=== PATIENT | female | born 1995 | race Caucasian/White ===

== ENCOUNTER 2019-10-07 10:08 | Inpatient (IN) | payer OTHER ==
[2019-10-07] VITALS (35 sets, daily range): BP systolic 105–148; BP diastolic 57–90
[~2019-10-07] VITALS: Ht 172.7 cm; Wt 100.1 kg
[2019-10-07] MEDS ORDERED: LACTATED RINGER'S 1000 ML IV STA (11:03)
[2019-10-07] MEDS ORDERED: PRENTAB9 PO (11:14)
[2019-10-07] MEDS ORDERED: miSOPROStol 50MCG 1/2 TABLET PO ONE (11:15)
[2019-10-07 11:16] LABS: BASO % 0.3 % (0.0-1.0); EOS # 0.1 10^3/uL (0.0-0.5); EOS % 1.8 % (0.0-3.0); HEMATOCRIT 34.7 % (36.0-47.0); LYMPH # 1.4 10^3/uL (1.5-5.0); LYMPH % 18.7 % (24.0-44.0); MEAN CORPUSCULAR HEMOGLOBIN 30.7 pg (27.0-33.0); MEAN CORPUSCULAR HGB CONC 34.6 g/dl (32.0-36.5); MEAN CORPUSCULAR VOLUME 88.7 fl (80.0-96.0); MONO # 0.5 10^3/uL (0.0-0.8); MONO % 7.1 % (0.0-5.0); NEUTROPHILS # 5.2 10^3/uL (1.5-8.5); NEUTROPHILS % 71.8 % (36.0-66.0); PLATELET COUNT, AUTOMATED 213 10^3/uL (150-450); RED BLOOD COUNT 3.91 10^6/uL (4.00-5.40); WHITE BLOOD COUNT 7.3 10^3/uL (4.0-10.0)
[2019-10-07] MEDS ORDERED: OXYTOCIN DRIP 30 UNITS in IV 1 EA IV SCH (12:15)
[2019-10-07] MEDS: LR 1,000 ML IV SCH ×2 (15:27→20:15)
[2019-10-07] MEDS ORDERED: FENTANYL 2MCG/ML ROPIVACAINE 0.2% IN 0.9% NACL 100ML IVBAG As Ordered ONE ×2 (16:12→21:30)
--- NOTE | 2019-10-07 16:36 | IPNPDOC ---
Text Note Date of Service The patient was seen on 10/07/19. NOTE Patient is very uncomfortable w/ ctx. No LOF or VB. VS WNL NAD but uncomfortable ABD NT, gravid SVE 50/-2 LE mild edema FHT, category 1, 130s, reactive, no decels, ctx q1-2min A/P IOL for PD 41wks. Fetus reassuring on pitocin. Continue IOL. Stadol and phenergan PRN. D/w patient. VS,Fishbone, I+O VS, Fishbone, I+O Laboratory Tests 10/07/19 11:00 Vital Signs Date Time Temp Pulse Resp B/P (MAP) Pulse Ox O2 Delivery O2 Flow Rate FiO2 10/07/19 14:38 105 18 128/83 (98) 10/07/19 12:59 97.8 Giovana Serra MD October 07, 2019 16:36
[2019-10-07] MEDS ORDERED: SIMETHICONE 80MG CHEW TAB PO PRN (16:45)
[2019-10-07] MEDS ORDERED: PROMETHAZINE INJ 25 MG/ML VIAL (J2550) IV PRN (16:45)
[2019-10-07] MEDS ORDERED: MOM 30ML SUSPENSION UDC PO PRN (16:45)
[2019-10-07] MEDS ORDERED: ACETAMINOPHEN 500 MG TAB PO PRN (16:45)
[2019-10-07] MEDS ORDERED: diphenhydrAMINE 25MG CAP PO PRN (16:45)
[2019-10-07] MEDS ORDERED: CALCIUM CARBONATE 500 MG CHEW U/D PO PRN (16:45)
[2019-10-07] MEDS: BUTORPHANOL 2 MG/ML INJ (J0595) IV PRN ×2 (16:49→19:30)
[2019-10-07] MEDS ORDERED: NALOXONE INJ 0.4MG/1ML VIAL (J2310 PER 1MG) IV PRN (22:30)
[2019-10-07] MEDS ORDERED: ONDANSETRON 4MG/2ML VIAL IV PRN (22:30)
[2019-10-07] MEDS ORDERED: LACTATED RINGER'S 1000 ML IV PRN (22:30)
[2019-10-07] MEDS ORDERED: ePHEDrine SULFATE 25 MG/5 ML(5MG/ML) SYRINGE IV PRN (22:30)
[2019-10-07] MEDS ORDERED: REFRIGERATOR IV KEYS XX PRN (22:30)
[2019-10-07] MEDS ORDERED: diphenhydrAMINE 50MG/ML VIAL (J1200) IV PRN (22:30)
[2019-10-07] MEDS ORDERED: EPIDURAL COMMENT XX SCH (22:30)
[2019-10-07] MEDS ORDERED: EPIDURAL/PCA KEYS XX PRN (22:30)
[2019-10-08] VITALS (87 sets, daily range): BP systolic 107–184; BP diastolic 56–102
[2019-10-08] MEDS: FENTANYL/ROPIVACAINE/NACL BAG 100 ML EPIDURAL SCH ×2 (04:11→10:20)
[2019-10-08] MEDS: LR 1,000 ML IV SCH ×2 (04:15→07:03)
[2019-10-08] MEDS ORDERED: cefTRIAXone SOD 1GM VIAL (J0696 PER 250MG) IM ONE (16:15)
[2019-10-08] MEDS ORDERED: cefTRIAXone SOD 1 GM in D5W MINI-BAG PLUS 50 ML IV ONE (16:45)
[2019-10-08] MEDS ORDERED: OXYTOCIN DRIP 30 UNITS in IV 1 EA IV SCH (17:14)
[2019-10-08] MEDS ORDERED: ANUSOL HC CREAM 30GM TOP PRN (17:15)
[2019-10-08] MEDS ORDERED: LIDOCAINE 1% MDV 20ML VIAL INFIL ONE (17:15)
[2019-10-08] MEDS ORDERED: METHYLERGONOVINE MALEATE 0.2 MG TAB PO PRN (17:15)
[2019-10-08] MEDS ORDERED: MEASLES,MUMPS,RUBELLA VACCINE INJ (MMR-II) (90707) SC SCH (17:15)
[2019-10-08] MEDS ORDERED: DIBUCAINE 1% OINTMENT 30GM TOP PRN (17:15)
[2019-10-08] MEDS ORDERED: RHOGAM 300 MCG (1500 IU) INJ (J2790) IM SCH (17:15)
--- NOTE | 2019-10-08 17:20 | DNPDOC ---
[facility] Delivery Note Delivery Note DATE OF DELIVERY: 10/08/2019 PREDELIVERY DIAGNOSIS: 41-1/7 weeks' gestation and labor. POST DELIVERY DIAGNOSIS: Delivered. PROCEDURE: Spontaneous vaginal delivery. MANAGER SHIFT: Dr. Serra ANESTHESIA: Epidural. ESTIMATED BLOOD LOSS: 250 mL. FINDINGS: 9 pound 8 ounce 4320gm boy infant, Score 8/9, nuchal cord times 1. DELIVERY SUMMARY: Patient is a 24-year-old 1 now para 1 who was admitted to labor and delivery for IOL for postdates for labor of 24hours. Patient SROM clear around 2323. Baby boy head was delivered with Ritkins maneuver due to FHT in 40s without difficulty over intact perineum in CHIP position with compound right hand at 1608. The nose and mouth were bulb suctioned. x1 nuchal cord was noted. The shoulders were then delivered without difficulty. was handed to nursing. Cord was then clamped x2 and cut after pulsation. Pitocin bolus was started. Perineum and vagina was inspected and found to have a 2nd degree laceration. This was repaired with 15mL of 1% lidocaine and 2-0 chromic. The placenta was then delivered at 1642 spontaneously intact. Cord had a 3 vessel cord. EBL was 250mL. The vagina and perineum were reinspected and no further lacerations were found and hemostasis was good. Fundus was firm. Patient tolerated delivery well. Giovana Serra MD October 08, 2019 15:59
[2019-10-08] MEDS ORDERED: ACET-683 PO (17:24)
[2019-10-08] MEDS ORDERED: PROC1CRE5 TOP (17:24)
[2019-10-08] MEDS ORDERED: DOCU100C16 PO (17:24)
[2019-10-08] MEDS ORDERED: IBUP80TA PO (17:24)
[2019-10-08] MEDS ORDERED: DIBU10OI TOP (17:24)
[2019-10-08] MEDS: IBUPROFEN 800 MG TAB PO PRN (18:36)
[2019-10-08] MEDS: DOCUSATE SODIUM 100MG CAPSULE PO SCH (21:29)
[2019-10-09] MEDS: IBUPROFEN 800 MG TAB PO PRN (05:48)
[2019-10-09 06:19] VITALS: BP 113/56
--- NOTE | 2019-10-09 06:42 | IPNPDOC ---
Progress Note Date of Service: October 09, 2019 Day#: 1 Progress Note SUBJECT: Patient is a 24-year-old 1 now Para 1 status post uncomplicated spontaneous vaginal delivery with post 2nd degree laceration and repair, doing well day # 1. She has been ambulating, voiding spontaneously without issue and tolerating regular diet. Breast feeding without issue. Reports lochia is like a normal period. Patient is ambulating well. Reports some cramping with . Tolerable pain. OBJECTIVE: VITAL SIGNS: Within normal limits, afebrile. GENERAL: No acute distress HEENT: MMM BREAST: Nontender, no erythema CARDIOVASCULAR EXAMINATION: RRR RESPIRATORY EXAMINATION: Bilaterally clear ABDOMINAL EXAMINATION: Soft, appropriate tenderness, nondistended, fundus -2 PERINEUM: Intact, minimal lochia EXTREMITIES: no edema, nontender ASSESSMENT: Patient is a 24-year-old 1 now Para 1 status post uncomplicated spontaneous vaginal delivery with post 2nd degree laceration and repair, doing well day # 1. Vitals within normal limits, afebrile, hemodynamically stable with no evidence of infection. PLAN: 1. Continue care. 2. Tylenol and Motrin for pain. 3. Encourage breast feeding and ambulation. VS, I&O, 24H, Fishbone Vital Signs/I&O Vital Signs Date Time Temp Pulse Resp B/P (MAP) Pulse Ox O2 Delivery O2 Flow Rate FiO2 10/08/19 14:19 102 18 129/69 (89) 10/08/19 13:25 99.7 10/07/19 16:59 Room Air l I&O- Last 24 Hours up to 6 AM 10/08/19 06:00 Intake Total 3000 ml Output Total 1300 ml Balance 1700 ml Giovana Serra MD October 08, 2019 16:03
[2019-10-09] MEDS: DOCUSATE SODIUM 100MG CAPSULE PO SCH ×2 (09:00→20:44)
[2019-10-09] MEDS: PRENATAL VITAMINS CHEWABLE TABLET PO SCH (12:09)
[2019-10-09] MEDS: ACETAMINOPHEN 500 MG TAB PO PRN (12:10)
[2019-10-09 18:00] VITALS: BP 121/63
[2019-10-10 05:47] VITALS: BP 126/71
[2019-10-10] MEDS: ACETAMINOPHEN 500 MG TAB PO PRN (05:56)
--- NOTE | 2019-10-10 07:44 | IPNPDOC ---
Progress Note Date of Service: October 10, 2019 Day#: 2 Progress Note SUBJECT: Patient is a 24 yo s/p ppd #2. Patient without concerns tod ay. She has been ambulating, voiding spontaneously without issue and tolerating regular diet. Breast feeding without issue. Reports lochia is light. Undecided on contraceptive at this point. OBJECTIVE: VITAL SIGNS: Within normal limits, afebrile. Alert and oriented times three. Abdomen: Fundus firm at U-2. Soft, NTTP. LE: No edema/erythema/tenderness A/P patient is ppd #2, doing well. discussed contraceptive options, will revisit at appointment. encourage BF. discharge instructions. d/c home today Le, Marlon VS, I&O, 24H, Fishbone Vital Signs/I&O Vital Signs Date Time Temp Pulse Resp B/P (MAP) Pulse Ox O2 Delivery O2 Flow Rate FiO2 10/10/19 06:32 98.6 10/10/19 05:47 93 20 126/71 (89) 97 Room Air AVRIL JOSHUA DO October 10, 2019 07:44
--- NOTE | 2019-10-10 07:51 | DS.PDOC ---
Discharge Summary General Date of Admission October 07, 2019 at 10:08 Date of Discharge 10/10/2019 Discharge Summary PROCEDURES PERFORMED DURING STAY: None. ADMITTING DIAGNOSES: 1. Postdates term DISCHARGE DIAGNOSES: 1. () HOSPITAL COURSE: Patient had IOL with uncomplicated . Bleeding like menses. Tolerating diet. Passing flatus. Able to ambulate. Pain tolerable with pain medications. Urinating without difficulty. course uncomplicated and patient discharged home on day #2. DISCHARGE MEDICATIONS: Please see below. ALLERGIES: Please see below. LABORATORY DATA: Please see below. IMAGING: none PROGNOSIS: Good ACTIVITY: Pelvic rest. DIET: Regular DISPOSITION: discharge to home DISCHARGE INSTRUCTIONS: 1. See attached. ITEMS TO FOLLOWUP ON ON OUTPATIENT: 1. 6-8wks in clinic. DISCHARGE CONDITION: Stable. TIME SPENT ON DISCHARGE: Greater than 10 minutes. Vital Signs/I&Os Vital Signs Date Time Temp Pulse Resp B/P (MAP) Pulse Ox O2 Delivery O2 Flow Rate FiO2 10/08/19 14:19 102 18 129/69 (89) 10/08/19 13:25 99.7 10/07/19 16:59 Room Air I&O- Last 24 Hours up to 6 AM 10/08/19 06:00 Intake Total 3000 ml Output Total 1300 ml Balance 1700 ml Discharge Medications Scheduled Docusate Sodium (Docusate Sodium) 100 Mg Capsule, 100 MG PO BID No.137/Iron/Folic Acd ( Vitamin Tablet) 1 Each Tablet, 1 TAB PO DAILY, (Reported) Scheduled PRN Acetaminophen (Acetaminophen) 500 Mg Tablet, 1,000 MG PO Q6HP PRN for fever or pain or headache Dibucaine (Dibucaine) 28 Gm Oint...g., 0 DOSE TOP Q4HP PRN for PAIN Hydrocortisone (Proctozone-Hc) 30 Gm Crm.pe.alcira, 0 DOSE TOP Q4HP PRN for DISCOMFORT Ibuprofen (Ibuprofen) 800 Mg Tablet, 800 MG PO Q8HP PRN for PAIN LEVEL 6-10 Allergies Coded Allergies: No Known Drug Allergies (Verified Allergy, Unknown, 10/07/19) Giovana Serra MD October 08, 2019 17:23 AVRIL JOSHUA DO October 10, 2019 07:51
[2019-10-10] MEDS: DOCUSATE SODIUM 100MG CAPSULE PO SCH (08:44)
[2019-10-10] MEDS: PRENATAL VITAMINS CHEWABLE TABLET PO SCH (08:44)
--- NOTE | 2019-10-15 21:23 | IPN ---
DATE: 10/09/2019 This patient requested circumcision of her male after discussing the risks and benefits of circumcision, the medical and nonmedical indications, the penile block and aftercare. Expressed understanding of penile block, aftercare and bleeding, signed the consent form. All questions were answered. We await the clearance by the custom motorcycle painter.
== END 2019-10-10 14:20 | disposition home or self-care (01) | DRG 807 ==
LOC: M LDI 10:08 → M OBS 10-08 18:09
PROVIDERS: ADMIT Obstetrics & Gynecology; ATTEND Obstetrics & Gynecology
PROC: 3E033VJ Introduction of Other Hormone into Peripheral Vein, Percutaneous Approach (ICD-10-PCS; 2019-10-07)
PROC: 10E0XZZ Delivery of Products of Conception, External Approach (ICD-10-PCS; principal; 2019-10-08)
PROC: 0KQM0ZZ Repair Perineum Muscle, Open Approach (ICD-10-PCS; 2019-10-08)
DX: O48.0 Post-term pregnancy (principal); Z37.0 Single live birth; Z3A.41 41 weeks gestation of pregnancy; O70.1 Second degree perineal laceration during delivery

== ENCOUNTER 2020-08-12 20:09 | Emergency (ER) | payer OTHER ==
[~2020-08-12] VITALS: Ht 165.1 cm; Wt 88.6 kg
[~2020-08-12 20:09] MED LIST: ACET-683 PO; DIBU10OI TOP; DOCU100C16 PO; IBUP80TA PO; PRENTAB9 PO; PROC1CRE5 TOP
[2020-08-12] MEDS ORDERED: SUMA25TA3 PO (20:26)
[2020-08-12] MEDS ORDERED: NS 1,000 ML IV ONE (22:40)
[2020-08-12 23:00] LABS: BASO % 0.6 % (0.0-1.0); EOS # 0.1 10^3/uL (0.0-0.5); EOS % 1.8 % (0.0-3.0); HEMATOCRIT 41.9 % (36.0-47.0); HEMOGLOBIN 13.6 g/dl (12.0-15.5); LYMPH # 2.4 10^3/uL (1.5-5.0); LYMPH % 46.6 % (24.0-44.0); MEAN CORPUSCULAR HGB CONC 32.5 g/dl (32.0-36.5); MEAN CORPUSCULAR VOLUME 86.2 fl (80.0-96.0); MONO # 0.5 10^3/uL (0.0-0.8); NEUTROPHILS # 2.1 10^3/uL (1.5-8.5); PLATELET COUNT, AUTOMATED 245 10^3/uL (150-450); RED BLOOD COUNT 4.86 10^6/uL (4.00-5.40); WHITE BLOOD COUNT 5.1 10^3/uL (4.0-10.0)
[2020-08-12] MEDS ORDERED: diphenhydrAMINE 50MG/ML VIAL (J1200) IV STA (23:54)
[2020-08-12] MEDS ORDERED: METOCLOPRAMIDE INJ 10MG/2ML VIAL (J2765 PER 1) IV ONE (23:55)
[2020-08-12] MEDS ORDERED: KETOROLAC 30 MG/ML 1ML VIAL IV ONE (23:55)
[2020-08-12] MEDS ORDERED: dexameTHASONE 20MG/5ML VIAL (J1100 PER 1MG) IV ONE (23:55)
--- NOTE | 2020-08-13 01:45 | REPVR ---
PROCEDURE INFORMATION: Exam: CT Head Without Contrast Exam date and time: 08/13/2020 1:05 AM Age: 24 years old Clinical indication: Pain; Headache; Migraine; Aura effect not specified; Additional info: CHARLES x months, no priors TECHNIQUE: Imaging protocol: Computed tomography of the head without contrast. Axial and coronal reformatted images were created and reviewed. Radiation optimization: All CT scans at this facility use at least one of these dose optimization techniques: automated exposure control; mA and/or kV adjustment per patient size (includes targeted exams where dose is matched to clinical indication); or iterative reconstruction. COMPARISON: No relevant prior studies available. FINDINGS: Brain: No CT evidence of acute intracranial hemorrhage or acute territorial infarction. No significant mass effect or midline shift. Basal cisterns patent. Cerebral ventricles: Normal in size and configuration. Bones/joints: No acute osseous abnormality. Paranasal sinuses: Minimal ethmoid and right sphenoid sinus mucosal thickening. Mastoid air cells: Grossly unremarkable. Soft tissues: Grossly unremarkable. IMPRESSION: 1. No CT evidence of acute intracranial pathology. 2. Additional findings, as above. Electronically signed by: Kelton May On 08/13/2020 01:44:32 AM
[2020-08-13] MEDS ORDERED: NAPR-837 PO (01:57)
[2020-08-13 02:12] VITALS: BP 122/74
== END 2020-08-13 02:14 | disposition home or self-care (01) ==
LOC: M ED 20:09
DX: R51.9 Headache, unspecified (principal)
CPT/HCPCS: 70450; 80047; 83735; 84702; 85025; 96361; 96374; 96375; 99284; J1100; J1200; J1885; J2765

== ENCOUNTER → 2021-03-03 | Outpatient (CLI) | payer OTHER ==
[~2021-03-03] MED LIST changes: -DIBU10OI TOP; +DIBU28OI2 TOP; +ISOVUE-300 61% 50ML VIAL As Ordered ONE; +LIDOCAINE 1% MDV 20ML VIAL As Ordered ONE; +NAPR-837 PO; +SUMA25TA3 PO; +TRIAMCINOLONE ACETONIDE SUSP 40 MG/ML VIAL (J3301) As Ordered ONE
--- NOTE | 2021-03-03 18:26 | REP ---
INDICATION: SPRAIN RT HIP, RT HIP PAIN. COMPARISON: None TECHNIQUE: The procedure was performed by [employer], under the direct supervision of Dr. Whyte. The benefits and risks of the procedure were explained to the patient, and an informed consent was obtained. Directly prior to the start of the procedure, a formal time-out was completed in the procedure room. The right hip joint space was localized using fluoroscopic guidance. The skin was prepped and draped in a sterile fashion. Approximately 5 mL of 1% Lidocaine 10 mg/ml was used as a local anesthetic. Using fluoroscopic guidance, a #22 gauge spinal needle was inserted and advanced into the right hip joint space. Approximately 1 mL of Isovue 300 was injected to verify placement. Ten mL of a solution containing 9 mL 1% lidocaine 10 mg/ml and 1 mL of Kenalog 40 mg was injected into the joint space. The needle was removed and hemostasis was achieved. FINDINGS: The patient tolerated the procedure well and there were no immediate complications. IMPRESSION: 1. Technically successful right hip arthrogram. 0.2 minutes of fluoroscopy time was utilized for this procedure. Some fluoroscopic images are performed with last image hold technology. These images require no additional radiation. <Electronically signed by Abida Villafuerte > 03/03/21 [id number] <Electronically signed by Zeyad Whyte > 03/03/21 [id number]
== END ==
LOC: M RADPRO 13:01
PROVIDERS: ATTEND Physician Assistant Surgical
DX: M24.851 Other specific joint derangements of right hip, not elsewhere classified (principal)
CPT/HCPCS: 20610; 77002; J3301; Q9967

== ENCOUNTER 2022-01-12 16:50 | Outpatient (CLI) | payer OTHER ==
[~2022-01-12] VITALS: Ht 172.7 cm; Wt 100.0 kg
[~2022-01-12 16:50] MED LIST changes: -ISOVUE-300 61% 50ML VIAL As Ordered ONE; -LIDOCAINE 1% MDV 20ML VIAL As Ordered ONE; +MULTTAB20 PO; -TRIAMCINOLONE ACETONIDE SUSP 40 MG/ML VIAL (J3301) As Ordered ONE
[2022-01-12 17:12] VITALS: BP 129/70
[2022-01-12 18:32] VITALS: BP 124/82
== END 2022-01-12 18:38 | disposition home or self-care (01) ==
LOC: M LDO 16:50
PROVIDERS: ATTEND Obstetrics & Gynecology
DX: O47.1 False labor at or after 37 completed weeks of gestation (principal); Z3A.40 40 weeks gestation of pregnancy; O99.353 Diseases of the nervous system complicating pregnancy, third trimester; G43.909 Migraine, unspecified, not intractable, without status migrainosus
CPT/HCPCS: 59025; G0463

== ENCOUNTER 2022-01-21 03:53 | Inpatient (IN) | payer OTHER ==
[2022-01-21] VITALS (32 sets, daily range): BP systolic 114–208; BP diastolic 56–134
[~2022-01-21] VITALS: Ht 167.6 cm; Wt 100.9 kg
[2022-01-21] MEDS ORDERED: LACTATED RINGER'S 1000 ML IV STA (04:01)
[2022-01-21] MEDS ORDERED: TRANEXAMIC ACID INJection 1,000 MG in NS 100 ML IV PRN (04:05)
[2022-01-21] MEDS ORDERED: OXYTOCIN DRIP 30 UNITS in IV 1 EA IV PRN ×4 (04:05)
[2022-01-21] MEDS ORDERED: LIDOCAINE 1% MDV 20ML VIAL INFIL PRN (04:05)
[2022-01-21] MEDS ORDERED: METHYLERGONOVINE MALEATE 0.2 MG/ML VIAL (J2210) IM PRN (04:05)
[2022-01-21] MEDS ORDERED: LR 1,000 ML IV SCH ×2 (04:05→13:55)
[2022-01-21] MEDS ORDERED: ZOLO50TA PO (04:37)
[2022-01-21 04:39] LABS: HEMATOCRIT 31.6 % (36.0-47.0); HEMOGLOBIN 10.3 g/dl (12.0-15.5); MEAN CORPUSCULAR HEMOGLOBIN 27.5 pg (27.0-33.0); MEAN CORPUSCULAR HGB CONC 32.6 g/dl (32.0-36.5); MEAN CORPUSCULAR VOLUME 84.3 fl (80.0-96.0); PLATELET COUNT, AUTOMATED 203 10^3/uL (150-450); RED BLOOD COUNT 3.75 10^6/uL (4.00-5.40); WHITE BLOOD COUNT 8.1 10^3/uL (4.0-10.0)
[2022-01-21] MEDS ORDERED: NALOXONE INJ 0.4MG/1ML VIAL (J2310 PER 1MG) IV PRN (04:55)
[2022-01-21] MEDS ORDERED: ONDANSETRON 4MG 2ML VIAL IV PRN (04:55)
[2022-01-21] MEDS ORDERED: LR 500 ML IV PRN (04:55)
[2022-01-21] MEDS ORDERED: ePHEDrine SULFATE 25 MG/5 ML(5MG/ML) SYRINGE IVP PRN (04:55)
[2022-01-21] MEDS ORDERED: EPIDURAL/PCA KEYS XX PRN (04:55)
[2022-01-21] MEDS ORDERED: FENTANYL/ROPIVACAINE/NACL BAG 100 ML EPIDURAL SCH (04:55)
[2022-01-21] MEDS ORDERED: diphenhydrAMINE 50MG/ML VIAL (J1200) IV PRN (04:55)
[2022-01-21] MEDS ORDERED: OXYTOCIN INJ 10 UNITS/ML VIAL (J2590) IV PRN (07:35)
[2022-01-21] MEDS: SERTRALINE HCL 50 MG TAB PO SCH (09:00)
[2022-01-21] MEDS ORDERED: SERTRALINE HCL 50 MG TAB PO SCH (09:00)
[2022-01-21] MEDS: PRENATAL VITAMINS CHEWABLE TABLET PO SCH (09:00)
[2022-01-21 11:12] LABS: CORD GAS ABE A -7.7; CORD GAS HCO3 A 19.2 MEQ/L; CORD GAS O2 SAT A 62.3 %; CORD GAS PCO2 A 43.8 mmHg; CORD GAS PH A 7.259 UNITS; CORD GAS PO2 A 28.3 mmHg; CORD GAS SBC A 17.5 MEQ/L; CORD GAS TCO2 A 20.5 MEQ/L
[2022-01-21 11:16] LABS: CORD GAS ABE V -7.4; CORD GAS O2 SAT V 16.4 %; CORD GAS PCO2 V 67.4 mmHg; CORD GAS PH V 7.151 UNITS; CORD GAS SBC V 16.6 MEQ/L; CORD GAS TCO2 V 25.1 MEQ/L
[2022-01-21] MEDS ORDERED: RHOGAM 300 MCG (1500 IU) INJ (J2790) IM SCH (13:55)
[2022-01-21] MEDS ORDERED: ACETAMINOPHEN TAB 650MG DOSE (2X325MG) PO PRN (13:55)
[2022-01-21] MEDS ORDERED: OXYTOCIN DRIP 30 UNITS in IV 1 EA IV SCH ×4 (13:55)
[2022-01-21] MEDS ORDERED: MOM 30ML SUSPENSION UDC PO PRN (13:55)
[2022-01-21] MEDS ORDERED: ACETAMINOPHEN 500 MG TAB PO PRN (13:55)
[2022-01-21] MEDS ORDERED: DOCUSATE SODIUM 100MG CAPSULE PO PRN (13:55)
[2022-01-21] MEDS ORDERED: IBUPROFEN 800 MG TAB PO PRN (13:55)
[2022-01-21] MEDS ORDERED: IBUPROFEN 600MG TAB PO PRN (13:55)
[2022-01-21] MEDS ORDERED: METHYLERGONOVINE MALEATE 0.2 MG TAB PO PRN (13:55)
[2022-01-21] MEDS ORDERED: TRANEXAMIC ACID INJection 1,000 MG in NS 100 ML IV ONE (13:55)
[2022-01-21] MEDS ORDERED: METHYLERGONOVINE MALEATE 0.2 MG/ML VIAL (J2210) IM ONE (13:55)
[2022-01-21] MEDS ORDERED: DIBUCAINE 1% OINTMENT 30GM TOP PRN (13:55)
[2022-01-21] MEDS ORDERED: ANUSOL HC CREAM 30GM TOP PRN (13:55)
[2022-01-21] MEDS ORDERED: OXYTOCIN INJ 10 UNITS/ML VIAL (J2590) IV ONE (13:55)
[2022-01-21] MEDS ORDERED: PERCOCET 5MG/325MG TAB PO ONE (14:30)
[2022-01-22 05:50] VITALS: BP 129/62
[2022-01-22 07:39] LABS: HEMATOCRIT 29.8 % (36.0-47.0); HEMOGLOBIN 9.7 g/dl (12.0-15.5); MEAN CORPUSCULAR HEMOGLOBIN 27.6 pg (27.0-33.0); MEAN CORPUSCULAR HGB CONC 32.6 g/dl (32.0-36.5); MEAN CORPUSCULAR VOLUME 84.7 fl (80.0-96.0); PLATELET COUNT, AUTOMATED 177 10^3/uL (150-450); RED BLOOD COUNT 3.52 10^6/uL (4.00-5.40); WHITE BLOOD COUNT 10.3 10^3/uL (4.0-10.0)
[2022-01-22] MEDS: PRENATAL VITAMINS CHEWABLE TABLET PO SCH (09:36)
[2022-01-22] MEDS: SERTRALINE HCL 50 MG TAB PO SCH (09:36)
[2022-01-22 18:30] VITALS: BP 124/72
[2022-01-23 06:13] VITALS: BP 125/65
[2022-01-23] MEDS: SERTRALINE HCL 50 MG TAB PO SCH (07:59)
[2022-01-23] MEDS: PRENATAL VITAMINS CHEWABLE TABLET PO SCH (07:59)
[2022-01-23] MEDS ORDERED: MEASLES,MUMPS,RUBELLA VACCINE INJ (MMR-II) (90707) SC.IMMUN ONE (09:00)
[2022-01-23] MEDS ORDERED: ACET1TAB55 PO (10:24)
[2022-01-23] MEDS ORDERED: IBUP-1022 PO (10:24)
[2022-01-23] MEDS ORDERED: COLA100C5 PO (10:24)
== END 2022-01-23 13:02 | disposition home or self-care (01) | DRG 807 ==
LOC: M LDO 03:53 → M LDI 04:02 → M OBS 13:07
PROVIDERS: ADMIT Obstetrics & Gynecology; ATTEND Obstetrics & Gynecology
PROC: 10E0XZZ Delivery of Products of Conception, External Approach (ICD-10-PCS; principal; 2022-01-21)
PROC: 10907ZC Drainage of Amniotic Fluid, Therapeutic from Products of Conception, Via Natural or Artificial Opening (ICD-10-PCS; 2022-01-21)
DX: O48.0 Post-term pregnancy (principal); Z37.0 Single live birth; Z3A.41 41 weeks gestation of pregnancy; O77.0 Labor and delivery complicated by meconium in amniotic fluid; O69.81X0 Labor and delivery complicated by cord around neck, without compression, not applicable or unspecified